=== PATIENT | male | born 1975 | race Caucasian/White ===

== ENCOUNTER 2018-03-20 01:43 | Emergency (ER) | payer OTHER ==
[~2018-03-20] VITALS: Ht 167.6 cm; Wt 86.2 kg
[~2018-03-20 01:43] MED LIST: ACETAMINOPHEN-1 EAC1 PO; AMOXICILLIN; ZPAK PO
[2018-03-20 02:56] VITALS: BP 129/88
== END 2018-03-20 02:56 | disposition home or self-care (01) ==
LOC: M.ERS 01:43
DX: H61.21 Impacted cerumen, right ear (principal)

== ENCOUNTER 2019-02-05 08:39 | Emergency (ER) | payer OTHER ==
[~2019-02-05] VITALS: Ht 165.1 cm; Wt 81.7 kg
[2019-02-05] MEDS ORDERED: BACTRIM DS TAB1 EAC1 PO (09:02)
[2019-02-05] MEDS ORDERED: NORCO 5-325 TA1 EAC1 PO (09:02)
[2019-02-05 09:09] VITALS: BP 153/92
== END 2019-02-05 09:09 | disposition home or self-care (01) ==
LOC: M.ERS 08:39
DX: L03.113 Cellulitis of right upper limb (principal); M06.9 Rheumatoid arthritis, unspecified

== ENCOUNTER 2019-11-08 23:17 | Emergency (ER) | payer OTHER, MEDICAID ==
[~2019-11-08] VITALS: Ht 162.6 cm; Wt 86.2 kg
[~2019-11-08 23:17] MED LIST changes: +BACTRIM DS TAB1 EAC1 PO; +NORCO 5-325 TA1 EAC1 PO
[2019-11-08 23:26] VITALS: BP 133/90
== END 2019-11-09 02:14 | disposition left against medical advice (07) ==
LOC: M.ERS 23:17
DX: Z53.21 Procedure and treatment not carried out due to patient leaving prior to being seen by health care provider (principal)

== ENCOUNTER → 2020-07-28 | Emergency (ER) | payer OTHER, MEDICAID ==
[~2020-07-28] VITALS: Ht 167.6 cm; Wt 86.2 kg
[~2020-07-28] MED LIST changes: +HYDROCODON-ACE1 EAC8 PO; +INDOMETHACIN 2525 MG PO; +PREDNISONE50 MG PO
[2020-07-28 23:35] VITALS: BP 158/99
== END ==
LOC: M.ERS 23:23
DX: M25.461 Effusion, right knee (principal); M06.9 Rheumatoid arthritis, unspecified